=== PATIENT | male | born 1960 | race Caucasian/White ===

== ENCOUNTER 2017-07-22 09:21 | Inpatient (IN) | payer BC, OTHER ==
[~2017-07-22] VITALS: Ht 188 cm; Wt 90.7 kg
--- NOTE | 2017-07-22 09:45 | NUR ---
NEW IV STARTED ON RAC, 18 G.
--- NOTE | 2017-07-22 09:45 | NUR ---
PATIENT PRESENTS TO ER C/O ABD PAIN, NAUSEA AND VOMITING. ADMITS TO CHILLS AND HOT FLASHES. PATIENT IS A/OX 4. BREATHING EVEN AND UNLABORED. NO SOB. 1 EPISODE OF VOMITING AT ER. VITALS STABLE. SAFETY AND COMFORT MEASURES IN PLACE. AWAITING MD ORDERS.
[2017-07-22] MEDS ORDERED: DICYCLOMINE HCL INJ 20 MG/2 ML AMPUL IM ONE ×2 (09:49→10:00)
[2017-07-22] MEDS ORDERED: ONDANSETRON HCL/PF 4 MG/2 ML VIAL ONE ×2 (09:49→10:56)
--- NOTE | 2017-07-22 09:59 | NUR ---
PATIENT MEDICATED PER MD ORDERS.
[2017-07-22] MEDS ORDERED: ONDANSETRON HCL/PF 4 MG/2 ML VIAL IVP ONE ×2 (10:00→11:00)
[2017-07-22] MEDS ORDERED: IV NS 0.9% 1,000 ML BAG IV ONE ×2 (10:00→11:00)
[2017-07-22] MEDS ORDERED: LORAZEPAM INJ 2 MG/ML VIAL ONE ×2 (10:56→13:25)
[2017-07-22] MEDS ORDERED: LORAZEPAM INJ 2 MG/ML VIAL IV ONE (11:00)
[2017-07-22 11:08] LABS: BASOPHILS % (AUTO) 0.1 % (0.0-2.0); EOSINOPHILS % (AUTO) 0.3 % (0.0-6.0); HEMATOCRIT 45 % (39-51); HEMOGLOBIN 15.4 g/dL (13.5-17.5); LYMPHOCYTES # (AUTO) 1.3 /CMM (0.8-4.8); LYMPHOCYTES % (AUTO) 12.3 % (20.0-44.0); MEAN CORPUSCULAR HEMOGLOBIN 30 PG (26.0-33.0); MEAN CORPUSCULAR HGB CONC 34 g/dl (31.0-36.0); MEAN CORPUSCULAR VOLUME 88 fL (80-96); MONOCYTES # (AUTO) 0.3 /CMM (0.1-1.30); MONOCYTES % (AUTO) 3.3 % (2.0-12.0); NEUTROPHILS # (AUTO) 8.7 /CMM (1.8-8.9); PLATELET COUNT (AUTO) 227 /CMM (150-450); RED BLOOD CELL COUNT(AUTO) 5.14 MIL/uL (4.5-6.0); WHITE BLOOD COUNT (AUTO) 10.3 K/uL (4.3-11.0)
[2017-07-22 11:12] LABS: CALCIUM, SERUM 8.9 mg/dL (8.5-10.1); POTASSIUM 3.8 mmol/L (3.5-5.1)
--- NOTE | 2017-07-22 11:30 | NUR ---
PATIENT TAKEN TO CT VIA STRETCHER.
--- NOTE | 2017-07-22 11:45 | NUR ---
PATIENT RETURNED FROM CT.
--- NOTE | 2017-07-22 14:19 | NUR ---
REPORT GIVEN TO JENS HAGAN FOR ADMISSION
[2017-07-22] MEDS ORDERED: IV NS 0.9% 1,000 ML IV PRN ×2 (14:59→17:30)
[2017-07-22 15:00] VITALS: BP 152/72
[2017-07-22] MEDS ORDERED: MAG HYDROX/AL HYDROX/SIMETH 30 ML UDC PO PRN (15:00)
[2017-07-22] MEDS ORDERED: ONDANSETRON HCL/PF 4 MG/2 ML VIAL IVP PRN (15:00)
[2017-07-22] MEDS ORDERED: ZOLPIDEM TARTRATE 5 MG TABLET PO PRN (15:00)
[2017-07-22] MEDS ORDERED: Z GUARD REMEDY 2 OZ OINT TP PRN (15:00)
[2017-07-22] MEDS ORDERED: HYDROCODONE/APAP 5/325MG 1 EACH TABLET PO PRN (15:00)
[2017-07-22] MEDS ORDERED: MAGNESIUM HYDROXIDE 30 ML UDC PO PRN (15:00)
[2017-07-22] MEDS ORDERED: ACETAMINOPHEN 325 MG TABLET PO PRN (15:00)
--- NOTE | 2017-07-22 15:05 | NUR ---
PATIENT TRANSPORTED TO [facility] VIA STRETCHER WITH EMT. JENS HAGAN TO PROVIDE JACEK.
--- NOTE | 2017-07-22 15:10 | NUR ---
MS BAR MACHINE OPERATOR MULTIPLE SPINDLE NOTES ADMITTED PT FROM ER VIA STRETCHER.PT IS ALERT AND ORIENTED X4.VERBALLY RESPONSIVE.SKIN INTACT.DENIES NAUSEA AND VOMITING AT THIS TIME.PT JUST WENT BACK TO SLEEP.RESPIRATIONS NON LABORED IN ROOM AIR.IV H/L INTACT TO RT AC G 18.AMBULATES AD ROBBY WITH STEADY GAIT.CALL LIGHT PLACED WITHIN REACH.WILL MONITOR.
[2017-07-22 16:00] VITALS: BP 152/72
[2017-07-22] MEDS ORDERED: IV NS 0.9% 1,000 ML BAG IV PRN (17:30)
--- NOTE | 2017-07-22 18:59 | NUR ---
PT SLEEPING IN BED BUT AROUSABLE DENYING NAUSEA,VOMITING,DIARRHEA EPISODE NOR PAIN OR DISTRESS WHILE ON THE UNIT.WITH ONGOING IVF OF NS AT 75 ML/HR INFUSING WELL.
--- NOTE | 2017-07-22 19:30 | NUR ---
MS RN OPENING NOTES: PATIENT IN BED, AOX4, ON ROOM AIR, BREATHING EVEN AND UNLABORED. PATIENT JUST RECENTLY HAD ONE EPISODE OF VOMITING AND IS COMPLAINING OF BEING NAUSEOUS. PIV OVER RAC G 18 INTACT AND PATENT, INFUSING WELL WITH NS RUNNIGN AT 75 ML/HR. PROVIDED FOR COMFORT AND SAFETY. CALL LIGHT WITHIN REACH. WILL CONT TO MONITOR.
--- NOTE | 2017-07-22 19:45 | NUR ---
RN NOTES: ADMINISTERED ZOFRAN 4 MG IV PRN FOR VOMITING. GAVE ICE CHIPS WELL AND MAINTAINED HOB ELEVATED.
[2017-07-22 20:10] VITALS: BP 157/86
[2017-07-23] MEDS ORDERED: LORAZEPAM 1 MG TABLET ONE (02:22)
--- NOTE | 2017-07-23 02:28 | NUR ---
RN NOTES: PATIENT APPEARS ANXIOUS, AGITATED IN BED. IV WAS ACCIDENTALLY PULLED OUT WELL. REINSERTED NEW IV LINE OVER RFA, G22. INFORMED DR PEÑA RE PATIENT, ORDER FOR ATIVAN 2 MG PO PRN GIVEN. VS CHECKED, STABLE. ADMINISTERED ATIVAN PO. WILL CONT TO MONITOR.
[2017-07-23] MEDS ORDERED: LORAZEPAM 1 MG TABLET PO PRN (02:30)
[2017-07-23 02:31] VITALS: BP 120/79
[2017-07-23 06:31] LABS: BASOPHILS % (AUTO) 0.2 % (0.0-2.0); HEMATOCRIT 40 % (39-51); HEMOGLOBIN 13.1 g/dL (13.5-17.5); LYMPHOCYTES # (AUTO) 1.4 /CMM (0.8-4.8); LYMPHOCYTES % (AUTO) 13.1 % (20.0-44.0); MEAN CORPUSCULAR HEMOGLOBIN 30 PG (26.0-33.0); MEAN CORPUSCULAR HGB CONC 33 g/dl (31.0-36.0); MEAN CORPUSCULAR VOLUME 90 fL (80-96); MONOCYTES % (AUTO) 9.2 % (2.0-12.0); NEUTROPHILS # (AUTO) 8.3 /CMM (1.8-8.9); NEUTROPHILS % (AUTO) 77.5 % (43.0-81.0); PLATELET COUNT (AUTO) 177 /CMM (150-450); RDW COEFFICIENT OF VARIATION 14.2 (11.5-15.0); RED BLOOD CELL COUNT(AUTO) 4.44 MIL/uL (4.5-6.0); WHITE BLOOD COUNT (AUTO) 10.7 K/uL (4.3-11.0)
[2017-07-23 06:54] LABS: ALBUMIN 3.4 g/dL (3.4-5.0); BILIRUBIN,TOTAL 0.3 mg/dL (0.2-1.0); CREATININE 0.8 mg/dL (0.6-1.3); MAGNESIUM 1.8 mg/dL (1.8-2.4); PHOSPHORUS 3.5 mg/dL (2.5-4.9); POTASSIUM 3.6 mmol/L (3.5-5.1); TOTAL PROTEIN, SERUM 6.5 g/dL (6.4-8.2)
--- NOTE | 2017-07-23 06:55 | NUR ---
MS RN CLOSING NOTES: PATIENT IN BED, ASLEEP BUT EASILY AWAKENS, ON ROOM AIR, BREATHING EVEN AND UNLABORED. PIV OVER RFA G22 INTACT AND PATENT, INFUSING WELL WITH NS RUNNING AT 75 ML/HR. NO NAUSEA OR VOMITING NOTED AFTER MIDNIGHT, WAS ABLE TO TOLERATE SOFT FOOD GIVEN. NO ACUTE CHANGE IN CONDITION NOTED THROUGH SHIFT. PROVIDED FOR COMFORT AND SAFETY. WILL ENDORSE TO AM RN FOR JACEK.
--- NOTE | 2017-07-23 07:05 | NUR ---
MS RN OPENING NOTES RECEIVED PT FROM NIGHTSHIFT NURSE IN STABLE CONDITION. PT IS A/O X4. NO SOB OR SIGNS OF DISTRESS NOTED. BREATHING IS EVEN AND UNLABORED PT DENIES AND N/V OR ABDOMINAL PAIN AT THIS TIME. IV PRESENT ON RIGHT FOREARM 22G PATENT AND INTACT INFUSING NS @ 75 ML/HR. PT IS TOLERATING INFUSION WELL. NO REDNESS OR SIGNS OF INFILTRATION NOTED. BED IN LOW LOCKED POSITION, SIDE RAILS UP X2, CALL LIGHT WITHIN REACH. WILL CONTINUE TO MONITOR.
[2017-07-23] MEDS ORDERED: PANTOPRAZOLE 40 MG TABLET.DR PO SCH (07:30)
[2017-07-23 08:00] VITALS: BP_SYST 114; BP_SYST 146; BP_DIAS 64; BP_DIAS 77
--- NOTE | 2017-07-23 11:14 | NUR ---
MS WEIGHTS AND MEASURES SEALER NOTES PT. WAS DISCHARGED FROM UNIT IN STABLE CONDITION. ALL NEEDS WERE MET DURING SHIFT AND ORDERS CARRIED OUT ACCORDINGLY. ALL DISCHARGE INSTRUCTIONS WERE DISCUSSED IN DETAIL WITH PATIENT. PT VERBALIZED UNDERSTANDING. COPIES OF ALL DISCHARGE PAPERWORK WERE PLACED IN PT'S CHART. BELONGINGS FORM SIGNED BY PATIENT. PT. LEFT WITH ALL OF HIS BELONGINGS. LEFT FACILITY IN SAFELY IN A PRIVATE VEHICLE DRIVEN BY HIS .
== END 2017-07-23 11:05 | disposition home or self-care (01) | DRG 392 ==
LOC: ER 09:23 → MED 15:42
PROVIDERS: ADMIT Internal Medicine; ATTEND Internal Medicine
DX: A08.4 Viral intestinal infection, unspecified (principal); N28.1 Cyst of kidney, acquired; K76.89 Other specified diseases of liver; N20.0 Calculus of kidney
CPT/HCPCS: 36415; 71020-TC; 71250-TC; 80048-TC; 80053-TC; 80061-TC; 83735-TC; 84100-TC; 85025-TC; 87081-TC; 93307-TC; A4606; J0500; J2060; J2405; J7030; Z7610

== ENCOUNTER 2018-02-01 20:00 | Emergency (ER) | payer OTHER, BC ==
[~2018-02-01] VITALS: Ht 188 cm; Wt 93.0 kg
[2018-02-01 20:05] VITALS: BP 151/106
[2018-02-01] MEDS ORDERED: HYDROCODONE/APAP 5/325MG 1 EACH TABLET PO ONE (20:30)
[2018-02-01] MEDS ORDERED: HYDROCODONE/APAP 10/325MG 1 EA TABLET PO ONE (20:30)
[2018-02-01] MEDS ORDERED: HYDROCODONE/APAP 10/325MG 1 EA TABLET ONE (20:46)
== END 2018-02-01 23:33 | disposition home or self-care (01) ==
LOC: ER 20:06
DX: S93.491A Sprain of other ligament of right ankle, initial encounter (principal); F12.10 Cannabis abuse, uncomplicated; Z87.442 Personal history of urinary calculi; W01.0XXA Fall on same level from slipping, tripping and stumbling without subsequent striking against object, initial encounter; X50.1XXA Overexertion from prolonged static or awkward postures, initial encounter; Y93.89 Activity, other specified; Y92.89 Other specified places as the place of occurrence of the external cause; Y99.8 Other external cause status
CPT/HCPCS: 73502; 73564-TC; 73610-TC; A4606; Z7610

== ENCOUNTER 2018-03-04 09:28 | Outpatient (CLI) | payer OTHER, BC | END 2018-03-04 23:59 | disposition home or self-care (01) | LOC: MRI 09:28 | DX: S93.491D Sprain of other ligament of right ankle, subsequent encounter (principal); S83.412D Sprain of medial collateral ligament of left knee, subsequent encounter; S33.5XXD Sprain of ligaments of lumbar spine, subsequent encounter; S73.101D Unspecified sprain of right hip, subsequent encounter; X58.XXXD Exposure to other specified factors, subsequent encounter | CPT/HCPCS: 73721-TC ==

== ENCOUNTER 2018-03-11 10:53 | Outpatient (CLI) | payer BC ==
[2018-03-11 12:19] LABS: APPEARANCE,URINE SL CLOUDY (CLEAR); BILIRUBIN,URINE NEGATIVE (NEGATIVE); BLOOD, URINE NEGATIVE Ery/uL (NEGATIVE); COLOR,URINE YELLOW (YELLOW); KETONES,URINE NEGATIVE (NEGATIVE); LEUKOCYTE ESTERASE ,URINE NEGATIVE (NEGATIVE); NITRITE, URINE NEGATIVE (NEGATIVE); PROTEIN,URINE TRACE mg/dl (NEGATIVE); UGLUCOSE NEGATIVE (NEGATIVE); UROBILINOGEN,URINE 0.2 EU/dL (0.2)
[2018-03-11 12:28] LABS: BACTERIA,URINE None seen /HPF (None Seen); RBC,URINE NONE SEEN /HPF (0-2); WBC,URINE 0-2 /HPF (0-3)
[2018-03-11 12:29] LABS: CALCIUM OXALATE CRYSTALS,UR Moderate /HPF (None Seen); SQUAMOUS EPITHELIAL CELL,UR Few /HPF (None Seen)
[2018-03-12 13:08] LABS: VARICELLA ZOSTER IgG 1385 index (Immune >165)
[2018-03-14 09:50] LABS: CHOLESTEROL 188 mg/dL (<200); HDL CHOLESTEROL 46 mg/dL (40-60); LDL 128 mg/dL (0-99); TRIGLYCERIDES 112 mg/dL (30-150)
[2018-03-16 11:37] LABS: ALBUMIN 3.9 g/dL (3.4-5.0); BILIRUBIN,TOTAL 0.7 mg/dL (0.2-1.0); CREATININE 0.9 mg/dL (0.6-1.3); POTASSIUM 3.9 mmol/L (3.5-5.1); TOTAL PROTEIN, SERUM 7.4 g/dL (6.4-8.2)
[2018-03-16 11:42] LABS: BASOPHILS % (AUTO) 0.3 % (0.0-2.0); EOSINOPHILS % (AUTO) 0.9 % (0.0-6.0); HEMATOCRIT 41 % (39-51); LYMPHOCYTES # (AUTO) 1.7 /CMM (0.8-4.8); LYMPHOCYTES % (AUTO) 30.6 % (20.0-44.0); MEAN CORPUSCULAR HGB CONC 34 g/dl (31.0-36.0); MEAN CORPUSCULAR VOLUME 90 fL (80-96); MONOCYTES # (AUTO) 0.4 /CMM (0.1-1.30); MONOCYTES % (AUTO) 6.7 % (2.0-12.0); NEUTROPHILS # (AUTO) 3.5 /CMM (1.8-8.9); NEUTROPHILS % (AUTO) 61.5 % (43.0-81.0); PLATELET COUNT (AUTO) 203 /CMM (150-450); RDW COEFFICIENT OF VARIATION 13.4 (11.5-15.0); WHITE BLOOD COUNT (AUTO) 5.6 K/uL (4.3-11.0)
[2018-03-16 11:50] LABS: PROSTATE SPECIFIC ANTIGEN SCR 0.52 ng/mL (0.00-4.00); THYROID STIMULATING HORMONE 1.538 uIU/mL (0.358-3.74); URIC ACID 5.1 mg/dL (2.6-7.2)
== END 2018-03-11 23:59 | disposition home or self-care (01) ==
LOC: LAB 10:53
PROVIDERS: ATTEND Legal Medicine
DX: N40.0 Benign prostatic hyperplasia without lower urinary tract symptoms (principal); R79.89 Other specified abnormal findings of blood chemistry
CPT/HCPCS: 36415; 80053-TC; 80061-TC; 81000-TC; 82306; 84153-TC; 84402; 84403; 84439-TC; 84443-TC; 84550-TC; 85025-TC; 86787

== ENCOUNTER 2018-03-14 14:13 | Outpatient (CLI) | payer BC | END 2018-03-14 23:59 | disposition home or self-care (01) | LOC: CARD 14:13 | PROVIDERS: ATTEND Legal Medicine | DX: R01.1 Cardiac murmur, unspecified (principal) | CPT/HCPCS: 93880-TC ==

== ENCOUNTER 2018-04-07 11:17 | Outpatient (CLI) | payer BC ==
[2018-04-07 13:32] LABS: APPEARANCE,URINE SL CLOUDY (CLEAR); BILIRUBIN,URINE NEGATIVE (NEGATIVE); BLOOD, URINE TRACE-INTA Ery/uL (NEGATIVE); COLOR,URINE YELLOW (YELLOW); KETONES,URINE NEGATIVE (NEGATIVE); LEUKOCYTE ESTERASE ,URINE NEGATIVE (NEGATIVE); NITRITE, URINE NEGATIVE (NEGATIVE); PROTEIN,URINE NEGATIVE (NEGATIVE); UGLUCOSE NEGATIVE (NEGATIVE); UROBILINOGEN,URINE 0.2 EU/dL (0.2)
[2018-04-07 13:44] LABS: RBC,URINE 0-2 /HPF (0-2)
[2018-04-07 13:45] LABS: BACTERIA,URINE Rare /HPF (None Seen); SQUAMOUS EPITHELIAL CELL,UR Few /HPF (None Seen); URINE AMORPHOUS URATE Moderate /HPF (None Seen); WBC,URINE NONE SEEN /HPF (0-3)
[2018-04-07 13:49] LABS: ALBUMIN 3.9 g/dL (3.4-5.0); BILIRUBIN,TOTAL 0.3 mg/dL (0.2-1.0); CALCIUM, SERUM 8.8 mg/dL (8.5-10.1); CREATININE 1.1 mg/dL (0.6-1.3); POTASSIUM 4.1 mmol/L (3.5-5.1); TOTAL PROTEIN, SERUM 7.3 g/dL (6.4-8.2)
[2018-04-07 14:02] LABS: INR 0.92 (0.87-1.13)
[2018-04-07 14:33] LABS: BASOPHILS % (AUTO) 0.3 % (0.0-2.0); EOSINOPHILS % (AUTO) 1.4 % (0.0-6.0); HEMATOCRIT 41 % (39-51); HEMOGLOBIN 14.2 g/dL (13.5-17.5); LYMPHOCYTES # (AUTO) 1.6 /CMM (0.8-4.8); LYMPHOCYTES % (AUTO) 31.5 % (20.0-44.0); MEAN CORPUSCULAR HGB CONC 35 g/dl (31.0-36.0); MEAN CORPUSCULAR VOLUME 88 fL (80-96); MONOCYTES # (AUTO) 0.5 /CMM (0.1-1.30); NEUTROPHILS % (AUTO) 57.8 % (43.0-81.0); PLATELET COUNT (AUTO) 228 /CMM (150-450); RDW COEFFICIENT OF VARIATION 14.3 (11.5-15.0); RED BLOOD CELL COUNT(AUTO) 4.66 MIL/uL (4.5-6.0); WHITE BLOOD COUNT (AUTO) 5.2 K/uL (4.3-11.0)
== END 2018-04-07 23:59 | disposition home or self-care (01) ==
LOC: LAB 11:17
PROVIDERS: ATTEND Surgery
DX: I70.0 Atherosclerosis of aorta (principal); R10.13 Epigastric pain; R19.4 Change in bowel habit
CPT/HCPCS: 36415; 71046; 80053-TC; 81000-TC; 85025-TC; 85610-TC; 85730-TC

== ENCOUNTER 2018-07-01 06:59 | Outpatient (CLI) | payer BC ==
[2018-07-01 07:59] LABS: CHOLESTEROL 218 mg/dL (<200); HDL CHOLESTEROL 55 mg/dL (40-60); LDL 129 mg/dL (0-99); TRIGLYCERIDES 180 mg/dL (30-150)
== END 2018-07-01 23:59 | disposition home or self-care (01) ==
LOC: LAB 06:59
PROVIDERS: ATTEND Internal Medicine Interventional Cardiology
DX: E78.5 Hyperlipidemia, unspecified (principal)
CPT/HCPCS: 36415; 80061-TC

== ENCOUNTER 2019-06-16 09:32 | Outpatient (CLI) | payer BC ==
[2019-06-16 10:21] LABS: BASOPHILS % (AUTO) 0.3 % (0.0-2.0); EOSINOPHILS % (AUTO) 1.1 % (0.0-6.0); HEMATOCRIT 45 % (39-51); HEMOGLOBIN 15.3 g/dL (13.5-17.5); LYMPHOCYTES # (AUTO) 1.5 /CMM (0.8-4.8); LYMPHOCYTES % (AUTO) 31.4 % (20.0-44.0); MEAN CORPUSCULAR HGB CONC 34 g/dl (31.0-36.0); MEAN CORPUSCULAR VOLUME 91 fL (80-96); MONOCYTES # (AUTO) 0.4 /CMM (0.1-1.30); NEUTROPHILS # (AUTO) 2.9 /CMM (1.8-8.9); NEUTROPHILS % (AUTO) 59.2 % (43.0-81.0); PLATELET COUNT (AUTO) 202 /CMM (150-450); RED BLOOD CELL COUNT(AUTO) 4.95 MIL/uL (4.5-6.0); WHITE BLOOD COUNT (AUTO) 4.9 K/uL (4.3-11.0)
[2019-06-16 10:22] LABS: APPEARANCE,URINE CLEAR (CLEAR); BILIRUBIN,URINE NEGATIVE (NEGATIVE); BLOOD, URINE NEGATIVE Ery/uL (NEGATIVE); COLOR,URINE DARK YELLO (YELLOW); KETONES,URINE NEGATIVE (NEGATIVE); LEUKOCYTE ESTERASE ,URINE NEGATIVE (NEGATIVE); NITRITE, URINE NEGATIVE (NEGATIVE); PROTEIN,URINE NEGATIVE (NEGATIVE); UGLUCOSE NEGATIVE (NEGATIVE); UROBILINOGEN,URINE 0.2 EU/dL (0.2)
[2019-06-16 10:35] LABS: ALBUMIN 4.3 g/dL (3.4-5.0); BILIRUBIN,TOTAL 0.8 mg/dL (0.2-1.0); CALCIUM, SERUM 8.7 mg/dL (8.5-10.1); POTASSIUM 3.7 mmol/L (3.5-5.1); TOTAL PROTEIN, SERUM 7.9 g/dL (6.4-8.2)
[2019-06-16 10:45] LABS: PROSTATE SPECIFIC ANTIGEN SCR 0.78 ng/mL (0.00-4.00); THYROID STIMULATING HORMONE 1.459 uIU/mL (0.358-3.74); URIC ACID 5.1 mg/dL (2.6-7.2)
== END 2019-06-16 23:59 | disposition home or self-care (01) ==
LOC: LAB 09:32
PROVIDERS: ATTEND Legal Medicine
DX: Z00.00 Encounter for general adult medical examination without abnormal findings (principal)
CPT/HCPCS: 36415; 80053-TC; 80061-TC; 81000-TC; 82306; 84153-TC; 84402; 84403; 84439-TC; 84443-TC; 84550-TC; 85025-TC; 87086-TC

== ENCOUNTER 2019-12-26 06:46 | Outpatient (CLI) | payer BC ==
[2019-12-26 08:58] LABS: BASOPHILS % (AUTO) 0.4 % (0.0-2.0); EOSINOPHILS % (AUTO) 3.9 % (0.0-6.0); HEMATOCRIT 44 % (39-51); HEMOGLOBIN 14.8 g/dL (13.5-17.5); LYMPHOCYTES # (AUTO) 1.8 /CMM (0.8-4.8); LYMPHOCYTES % (AUTO) 38.7 % (20.0-44.0); MEAN CORPUSCULAR HGB CONC 34 g/dl (31.0-36.0); MEAN CORPUSCULAR VOLUME 90 fL (80-96); MONOCYTES # (AUTO) 0.4 /CMM (0.1-1.30); NEUTROPHILS # (AUTO) 2.3 /CMM (1.8-8.9); PLATELET COUNT (AUTO) 198 /CMM (150-450); RED BLOOD CELL COUNT(AUTO) 4.84 MIL/uL (4.5-6.0); WHITE BLOOD COUNT (AUTO) 4.6 K/uL (4.3-11.0)
[2019-12-26 09:11] LABS: ALBUMIN 3.7 g/dL (3.4-5.0); BILIRUBIN,TOTAL 0.3 mg/dL (0.2-1.0); CALCIUM, SERUM 8.5 mg/dL (8.5-10.1); CREATININE 1.1 mg/dL (0.6-1.3); POTASSIUM 4.9 mmol/L (3.5-5.1); TOTAL PROTEIN, SERUM 7.2 g/dL (6.4-8.2)
[2019-12-26 09:21] LABS: THYROID STIMULATING HORMONE 2.151 uIU/mL (0.358-3.74)
== END 2019-12-26 23:59 | disposition home or self-care (01) ==
LOC: LAB 06:46
PROVIDERS: ATTEND Legal Medicine
DX: I10 Essential (primary) hypertension (principal); E11.9 Type 2 diabetes mellitus without complications; E78.5 Hyperlipidemia, unspecified; E03.9 Hypothyroidism, unspecified
CPT/HCPCS: 36415; 80053-TC; 80061-TC; 84443-TC; 85025-TC

== ENCOUNTER 2020-07-10 08:21 | Emergency (ER) | payer BC, OTHER ==
[~2020-07-10] VITALS: Ht 188 cm; Wt 95.3 kg
[2020-07-10 08:30] VITALS: BP 142/102
--- NOTE | 2020-07-10 09:00 | NUR ---
COVID SWAB SENT TO LAB. Patient discharged to home in stable condition. Written and verbal after care instructions given. Patient verbalizes understanding of instruction.
== END 2020-07-10 09:00 | disposition home or self-care (01) ==
LOC: ER 08:21
DX: Z20.828 Contact with and (suspected) exposure to other viral communicable diseases (principal); Z87.442 Personal history of urinary calculi; R03.0 Elevated blood-pressure reading, without diagnosis of hypertension
CPT/HCPCS: 99283; C9803; U0003

== ENCOUNTER 2020-07-17 08:25 | Emergency (ER) | payer OTHER ==
[~2020-07-17] VITALS: Ht 185.4 cm; Wt 93.0 kg
[2020-07-17 08:32] VITALS: BP 156/92
--- NOTE | 2020-07-17 09:27 | NUR ---
COVID SWAB SENT
== END 2020-07-17 09:28 | disposition home or self-care (01) ==
LOC: ER 08:25
DX: Z20.828 Contact with and (suspected) exposure to other viral communicable diseases (principal); Z87.442 Personal history of urinary calculi
CPT/HCPCS: 99283; C9803; U0003

== ENCOUNTER 2020-07-26 08:28 | Emergency (ER) | payer OTHER ==
[~2020-07-26] VITALS: Ht 185.4 cm; Wt 90.7 kg
[2020-07-26 08:30] VITALS: BP 159/92
== END 2020-07-26 09:20 | disposition home or self-care (01) ==
LOC: ER 08:30
DX: Z20.828 Contact with and (suspected) exposure to other viral communicable diseases (principal); I10 Essential (primary) hypertension; Z87.442 Personal history of urinary calculi
CPT/HCPCS: 99283; C9803; U0003

== ENCOUNTER 2020-07-31 08:04 | Outpatient (CLI) | payer BC ==
[2020-07-31 08:52] LABS: BASOPHILS % (AUTO) 0.3 % (0.0-2.0); EOSINOPHILS % (AUTO) 0.9 % (0.0-6.0); HEMATOCRIT 46 % (39-51); HEMOGLOBIN 15.5 g/dL (13.5-17.5); LYMPHOCYTES # (AUTO) 1.3 /CMM (0.8-4.8); LYMPHOCYTES % (AUTO) 26.1 % (20.0-44.0); MEAN CORPUSCULAR HGB CONC 34 g/dl (31.0-36.0); MEAN CORPUSCULAR VOLUME 93 fL (80-96); MONOCYTES # (AUTO) 0.5 /CMM (0.1-1.30); MONOCYTES % (AUTO) 10.5 % (2.0-12.0); NEUTROPHILS # (AUTO) 3.2 /CMM (1.8-8.9); NEUTROPHILS % (AUTO) 62.2 % (43.0-81.0); PLATELET COUNT (AUTO) 214 /CMM (150-450); WHITE BLOOD COUNT (AUTO) 5.1 K/uL (4.3-11.0)
[2020-07-31 08:55] LABS: ALBUMIN 4.1 g/dL (3.4-5.0); BILIRUBIN,TOTAL 0.5 mg/dL (0.2-1.0); CALCIUM, SERUM 8.6 mg/dL (8.5-10.1); POTASSIUM 3.9 mmol/L (3.5-5.1); TOTAL PROTEIN, SERUM 7.7 g/dL (6.4-8.2)
[2020-07-31 09:06] LABS: PROSTATE SPECIFIC ANTIGEN SCR 0.68 ng/mL (0.00-4.00); THYROID STIMULATING HORMONE 1.534 uIU/mL (0.358-3.74); URIC ACID 5.5 mg/dL (2.6-7.2)
[2020-07-31 11:50] LABS: APPEARANCE,URINE CLEAR (CLEAR); BILIRUBIN,URINE NEGATIVE (NEGATIVE); BLOOD, URINE TRACE-INTA Ery/uL (NEGATIVE); COLOR,URINE DARK YELLO (YELLOW); KETONES,URINE TRACE (NEGATIVE); LEUKOCYTE ESTERASE ,URINE NEGATIVE (NEGATIVE); NITRITE, URINE NEGATIVE (NEGATIVE); PH,URINE 6.5 (5.0-8.0); PROTEIN,URINE TRACE mg/dl (NEGATIVE); UGLUCOSE NEGATIVE (NEGATIVE); UROBILINOGEN,URINE 0.2 EU/dL (0.2)
[2020-07-31 13:48] LABS: BACTERIA,URINE Rare /HPF (None Seen); SQUAMOUS EPITHELIAL CELL,UR Rare /HPF (None Seen); WBC,URINE 0-2 /HPF (0-3)
[2020-08-01 08:07] LABS: FOLIC ACID 17.4 ng/mL (>3.0)
== END 2020-07-31 23:59 | disposition home or self-care (01) ==
LOC: LAB 08:04
PROVIDERS: ATTEND Legal Medicine
DX: I10 Essential (primary) hypertension (principal); E11.9 Type 2 diabetes mellitus without complications; E03.9 Hypothyroidism, unspecified; E55.9 Vitamin D deficiency, unspecified; E78.00 Pure hypercholesterolemia, unspecified; Z00.00 Encounter for general adult medical examination without abnormal findings
CPT/HCPCS: 36415; 80053-TC; 80061-TC; 81000-TC; 82306; 82728-TC; 83540-TC; 84153-TC; 84402; 84403; 84439-TC; 84443-TC; 84550-TC; 85025-TC

== ENCOUNTER 2020-08-01 07:03 | Emergency (ER) | payer BC, OTHER ==
[~2020-08-01] VITALS: Ht 185.4 cm; Wt 90.7 kg
[2020-08-01 07:08] VITALS: BP 141/86
--- NOTE | 2020-08-02 09:33 | NUR ---
COVID RESULT: NEGATIVE
== END 2020-08-01 07:39 | disposition home or self-care (01) ==
LOC: ER 07:03
DX: Z20.828 Contact with and (suspected) exposure to other viral communicable diseases (principal); I10 Essential (primary) hypertension; Z87.442 Personal history of urinary calculi
CPT/HCPCS: 99283; C9803; U0003

== ENCOUNTER 2020-08-01 09:25 | Outpatient (CLI) | payer BC | END 2020-08-01 23:59 | disposition home or self-care (01) | LOC: MRI 09:25 | PROVIDERS: ATTEND Legal Medicine | DX: I34.0 Nonrheumatic mitral (valve) insufficiency (principal); I35.8 Other nonrheumatic aortic valve disorders; I10 Essential (primary) hypertension; M47.817 Spondylosis without myelopathy or radiculopathy, lumbosacral region; M48.07 Spinal stenosis, lumbosacral region; M51.27 Other intervertebral disc displacement, lumbosacral region; M25.78 Osteophyte, vertebrae; I67.82 Cerebral ischemia; H74.8X3 Other specified disorders of middle ear and mastoid, bilateral | CPT/HCPCS: 70551-TC; 72148-TC; 93307-TC; 93880-TC ==

== ENCOUNTER 2020-08-09 12:34 | Emergency (ER) | payer BC, OTHER ==
[~2020-08-09] VITALS: Ht 185.4 cm; Wt 90.7 kg
[2020-08-09 12:39] VITALS: BP 148/83
--- NOTE | 2020-08-09 12:56 | NUR ---
covid 19 swab collected and sent to lab
--- NOTE | 2020-08-09 12:57 | NUR ---
Patient discharged to home in stable condition. Written and verbal after care instructions given. Patient verbalizes understanding of instruction.
== END 2020-08-09 12:57 | disposition home or self-care (01) ==
LOC: ER 12:36
DX: Z20.828 Contact with and (suspected) exposure to other viral communicable diseases (principal)
CPT/HCPCS: 99283; C9803; U0003

== ENCOUNTER 2020-08-15 10:47 | Emergency (ER) | payer OTHER ==
[~2020-08-15] VITALS: Ht 185.4 cm; Wt 72.6 kg
[2020-08-15 11:12] VITALS: BP 134/77
== END 2020-08-15 11:33 | disposition home or self-care (01) ==
LOC: ER 10:50
DX: Z20.828 Contact with and (suspected) exposure to other viral communicable diseases (principal); Z87.442 Personal history of urinary calculi; I10 Essential (primary) hypertension
CPT/HCPCS: C9803-CS; U0003-CS

== ENCOUNTER 2020-08-22 09:29 | Emergency (ER) | payer OTHER ==
[~2020-08-22] VITALS: Ht 185.4 cm; Wt 90.7 kg
[2020-08-22 10:01] VITALS: BP 149/98
== END 2020-08-22 10:59 | disposition home or self-care (01) ==
LOC: ER 09:30
DX: Z20.828 Contact with and (suspected) exposure to other viral communicable diseases (principal); I10 Essential (primary) hypertension; Z87.442 Personal history of urinary calculi; Z87.19 Personal history of other diseases of the digestive system
CPT/HCPCS: 99283; C9803; U0003

== ENCOUNTER 2020-08-29 07:06 | Emergency (ER) | payer OTHER ==
[~2020-08-29] VITALS: Ht 177.8 cm; Wt 81.6 kg
[2020-08-29 07:28] VITALS: BP 137/83
== END 2020-08-29 08:12 | disposition home or self-care (01) ==
LOC: ER 07:06
DX: Z20.828 Contact with and (suspected) exposure to other viral communicable diseases (principal); I10 Essential (primary) hypertension; Z87.442 Personal history of urinary calculi
CPT/HCPCS: 99283; C9803; U0003

== ENCOUNTER 2020-09-06 07:17 | Emergency (ER) | payer OTHER ==
[~2020-09-06] VITALS: Ht 185.4 cm; Wt 88.9 kg
[2020-09-06 07:23] VITALS: BP 132/84
--- NOTE | 2020-09-06 07:47 | NUR ---
covid swab sent. Patient discharged to home in stable condition. Written and verbal after care instructions given. Patient verbalizes understanding of instruction.
== END 2020-09-06 07:48 | disposition home or self-care (01) ==
LOC: ER 07:19
DX: Z20.828 Contact with and (suspected) exposure to other viral communicable diseases (principal); I10 Essential (primary) hypertension; Z87.442 Personal history of urinary calculi
CPT/HCPCS: 99283; C9803; U0003

== ENCOUNTER 2020-09-12 07:17 | Emergency (ER) | payer OTHER ==
[~2020-09-12] VITALS: Ht 185.4 cm; Wt 88.9 kg
[2020-09-12 07:20] VITALS: BP 132/64
== END 2020-09-12 08:49 | disposition home or self-care (01) ==
LOC: ER 07:17
DX: Z20.828 Contact with and (suspected) exposure to other viral communicable diseases (principal); I10 Essential (primary) hypertension; Z87.442 Personal history of urinary calculi
CPT/HCPCS: 99283; C9803; U0003

== ENCOUNTER 2020-09-19 09:51 | Emergency (ER) | payer OTHER ==
[~2020-09-19] VITALS: Ht 188 cm; Wt 81.6 kg
[2020-09-19 09:54] VITALS: BP 134/81
--- NOTE | 2020-09-19 10:31 | NUR ---
covid swab sent. Patient discharged to home in stable condition. Written and verbal after care instructions given. Patient verbalizes understanding of instruction.
== END 2020-09-19 10:33 | disposition home or self-care (01) ==
LOC: ER 09:53
DX: Z20.828 Contact with and (suspected) exposure to other viral communicable diseases (principal); I10 Essential (primary) hypertension; Z87.442 Personal history of urinary calculi; Z87.19 Personal history of other diseases of the digestive system
CPT/HCPCS: 99283; C9803; U0003

== ENCOUNTER 2020-09-25 20:08 | Emergency (ER) | payer OTHER ==
[~2020-09-25] VITALS: Ht 188 cm; Wt 81.6 kg
[2020-09-25 20:12] VITALS: BP 132/64
== END 2020-09-25 20:34 | disposition home or self-care (01) ==
LOC: ER 20:11
DX: Z20.828 Contact with and (suspected) exposure to other viral communicable diseases (principal); I10 Essential (primary) hypertension; Z87.442 Personal history of urinary calculi
CPT/HCPCS: 99283; C9803; U0003

== ENCOUNTER 2020-10-03 08:57 | Emergency (ER) | payer OTHER ==
[~2020-10-03] VITALS: Ht 185.4 cm; Wt 90.7 kg
[2020-10-03 09:17] VITALS: BP 132/85
== END 2020-10-03 10:29 | disposition home or self-care (01) ==
LOC: ER 08:59
DX: Z20.828 Contact with and (suspected) exposure to other viral communicable diseases (principal); I10 Essential (primary) hypertension; Z87.442 Personal history of urinary calculi
CPT/HCPCS: 99283; C9803; U0003

== ENCOUNTER 2020-10-09 13:14 | Emergency (ER) | payer OTHER ==
[~2020-10-09] VITALS: Ht 185.4 cm; Wt 90.7 kg
[2020-10-09 13:20] VITALS: BP 145/79
--- NOTE | 2020-10-09 13:38 | NUR ---
Patient discharged to home in stable condition. Written and verbal after care instructions given. Patient verbalizes understanding of instruction. Pt ambulatory with a steady gait
== END 2020-10-09 13:39 | disposition home or self-care (01) ==
LOC: ER 13:14
DX: S51.811A Laceration without foreign body of right forearm, initial encounter (principal); I10 Essential (primary) hypertension; Z87.442 Personal history of urinary calculi; W25.XXXA Contact with sharp glass, initial encounter; Y93.89 Activity, other specified; Y92.89 Other specified places as the place of occurrence of the external cause; Y99.8 Other external cause status

== ENCOUNTER 2020-10-10 08:16 | Emergency (ER) | payer OTHER ==
[~2020-10-10] VITALS: Ht 185.4 cm; Wt 90.7 kg
[2020-10-10 08:20] VITALS: BP 142/78
== END 2020-10-10 09:25 | disposition home or self-care (01) ==
LOC: ER 08:18
DX: Z20.828 Contact with and (suspected) exposure to other viral communicable diseases (principal)
CPT/HCPCS: 99283; C9803; U0003

== ENCOUNTER 2020-10-16 09:40 | Emergency (ER) | payer OTHER ==
[~2020-10-16] VITALS: Ht 185.4 cm; Wt 90.7 kg
[2020-10-16 09:40] VITALS: BP 134/90
== END 2020-10-16 10:46 | disposition home or self-care (01) ==
LOC: ER 09:46
DX: S51.811D Laceration without foreign body of right forearm, subsequent encounter (principal); I10 Essential (primary) hypertension; Z87.442 Personal history of urinary calculi; W25.XXXD Contact with sharp glass, subsequent encounter

== ENCOUNTER 2020-10-24 08:49 | Emergency (ER) | payer OTHER ==
[~2020-10-24] VITALS: Ht 188 cm; Wt 88.5 kg
[2020-10-24 08:51] VITALS: BP 138/83
--- NOTE | 2020-10-24 09:16 | NUR ---
Patient discharged to home in stable condition. Written and verbal after care instructions given. Patient verbalizes understanding of instruction.
== END 2020-10-24 09:17 | disposition home or self-care (01) ==
LOC: ER 08:49
DX: Z20.828 Contact with and (suspected) exposure to other viral communicable diseases (principal); I10 Essential (primary) hypertension; Z87.19 Personal history of other diseases of the digestive system; Z87.442 Personal history of urinary calculi
CPT/HCPCS: 99283; C9803; U0003

== ENCOUNTER 2020-10-31 09:20 | Emergency (ER) | payer OTHER ==
[~2020-10-31] VITALS: Ht 185.4 cm; Wt 2.7 kg
[2020-10-31 09:22] VITALS: BP 151/94
== END 2020-10-31 10:07 | disposition home or self-care (01) ==
LOC: ER 09:22
DX: U07.1 COVID-19 (principal)
CPT/HCPCS: 99283; C9803; U0003

== ENCOUNTER 2020-11-05 07:27 | Emergency (ER) | payer OTHER ==
[~2020-11-05] VITALS: Ht 185.4 cm; Wt 90.7 kg
[2020-11-05 07:34] VITALS: BP 148/96
--- NOTE | 2020-11-05 22:40 | NUR ---
LAB CALLED REGARDING POSITIVE COVID RESULT
== END 2020-11-05 08:18 | disposition home or self-care (01) ==
LOC: ER 07:29
DX: U07.1 COVID-19 (principal); R19.7 Diarrhea, unspecified; I10 Essential (primary) hypertension; Z87.442 Personal history of urinary calculi
CPT/HCPCS: 99283; C9803; U0003

== ENCOUNTER 2020-11-21 09:44 | Emergency (ER) | payer BC, OTHER ==
[~2020-11-21] VITALS: Ht 188 cm; Wt 79.4 kg
[2020-11-21 10:00] VITALS: BP 155/98
[2020-11-21] MEDS ORDERED: AMOXICILLIN TRIHYDRATE 250 MG CAPSULE ONE (10:27)
[2020-11-21] MEDS ORDERED: IBUPROFEN 600 MG TABLET ONE (10:28)
[2020-11-21] MEDS ORDERED: IBUPROFEN 600 MG TABLET PO ONE (10:30)
[2020-11-21] MEDS ORDERED: AMOXICILLIN TRIHYDRATE 500 MG CAPSULE PO ONE (10:30)
== END 2020-11-21 10:30 | disposition home or self-care (01) ==
LOC: ER 09:51
DX: K08.89 Other specified disorders of teeth and supporting structures (principal); H60.8X3 Other otitis externa, bilateral; I10 Essential (primary) hypertension; Z87.442 Personal history of urinary calculi

== ENCOUNTER 2021-01-15 13:36 | Outpatient (CLI) | payer BC | END 2021-01-15 23:59 | disposition home or self-care (01) | LOC: RAD 13:36 | PROVIDERS: ATTEND Legal Medicine | DX: M25.461 Effusion, right knee (principal); M71.21 Synovial cyst of popliteal space [Baker], right knee | CPT/HCPCS: 73564-TC ==

== ENCOUNTER 2021-01-17 12:34 | Outpatient (CLI) | payer BC | END 2021-01-17 23:59 | disposition home or self-care (01) | LOC: CARD 12:34 | PROVIDERS: ATTEND Legal Medicine | DX: M71.21 Synovial cyst of popliteal space [Baker], right knee (principal) | CPT/HCPCS: 93971-TC ==

== ENCOUNTER 2021-01-20 09:46 | Emergency (ER) | payer BC ==
[~2021-01-20] VITALS: Ht 185.4 cm; Wt 90.7 kg
--- NOTE | 2021-01-20 09:58 | NUR ---
patient came in tot he er c/o left knee pain, twisted yesterday while walking, 8/10 pain scale. On room air, breathing evenly and unlabored. Connected to the monitor and pulse ox. kept comfortable, will continue to monitor accordingly.
--- NOTE | 2021-01-20 10:00 | NUR ---
AT BEDSIDE FOR EVAL.
--- NOTE | 2021-01-20 10:18 | NUR ---
TAXATION INSPECTOR AT BEDSIDE FOR XRAY.
[2021-01-20] MEDS ORDERED: IBUP-1957 PO (10:32)
--- NOTE | 2021-01-20 10:48 | NUR ---
Patient discharged to home in stable condition. Written and verbal after care instructions given. Patient verbalizes understanding of instruction.
[2021-01-20 10:49] VITALS: BP 127/73
== END 2021-01-20 10:49 | disposition home or self-care (01) ==
LOC: ER 09:57
DX: M25.562 Pain in left knee (principal); I10 Essential (primary) hypertension; Z87.442 Personal history of urinary calculi; Z79.899 Other long term (current) drug therapy
CPT/HCPCS: 73564-TC

== ENCOUNTER 2021-02-12 08:47 | Outpatient (CLI) | payer BC ==
[~2021-02-12 08:47] MED LIST: IBUP-1957 PO
== END 2021-02-12 23:59 | disposition home or self-care (01) ==
LOC: MRI 08:47
PROVIDERS: ATTEND Specialist
DX: S83.241A Other tear of medial meniscus, current injury, right knee, initial encounter (principal); M25.462 Effusion, left knee; M25.461 Effusion, right knee; M71.22 Synovial cyst of popliteal space [Baker], left knee; M71.21 Synovial cyst of popliteal space [Baker], right knee; M65.88 Other synovitis and tenosynovitis, other site; X58.XXXA Exposure to other specified factors, initial encounter; Y93.89 Activity, other specified; Y92.89 Other specified places as the place of occurrence of the external cause; Y99.8 Other external cause status
CPT/HCPCS: 73721-TC

== ENCOUNTER 2021-04-04 13:59 | Outpatient (CLI) | payer BC | END 2021-04-04 23:59 | disposition home or self-care (01) | LOC: LAB 13:59 | PROVIDERS: ATTEND Specialist | DX: Z01.812 Encounter for preprocedural laboratory examination (principal); Z20.822 Contact with and (suspected) exposure to COVID-19 | CPT/HCPCS: C9803; U0003 ==

== ENCOUNTER 2021-04-07 10:05 | Outpatient (CLI) | payer BC ==
[2021-04-07 11:10] LABS: BASOPHILS % (AUTO) 0.4 % (0.0-2.0); EOSINOPHILS % (AUTO) 1.6 % (0.0-6.0); HEMATOCRIT 41 % (39-51); HEMOGLOBIN 14.1 g/dL (13.5-17.5); LYMPHOCYTES % (AUTO) 39.5 % (20.0-44.0); MEAN CORPUSCULAR HGB CONC 35 g/dl (31.0-36.0); MEAN CORPUSCULAR VOLUME 92 fL (80-96); MONOCYTES # (AUTO) 0.5 /CMM (0.1-1.30); MONOCYTES % (AUTO) 9.4 % (2.0-12.0); NEUTROPHILS # (AUTO) 2.5 /CMM (1.8-8.9); NEUTROPHILS % (AUTO) 49.1 % (43.0-81.0); PLATELET COUNT (AUTO) 222 /CMM (150-450); RED BLOOD CELL COUNT(AUTO) 4.47 MIL/uL (4.5-6.0); WHITE BLOOD COUNT (AUTO) 5.1 K/uL (4.3-11.0)
[2021-04-07 11:23] LABS: BILIRUBIN,URINE NEGATIVE (NEGATIVE); COLOR,URINE YELLOW (YELLOW); LEUKOCYTE ESTERASE ,URINE NEGATIVE (NEGATIVE); NITRITE, URINE NEGATIVE (NEGATIVE); PH,URINE 6.5 (5.0-8.0); PROTEIN,URINE NEGATIVE (NEGATIVE); UGLUCOSE NEGATIVE (NEGATIVE); UROBILINOGEN,URINE 0.2 EU/dL (0.2)
[2021-04-07 11:49] LABS: BACTERIA,URINE None seen /HPF (None Seen); CALCIUM OXALATE CRYSTALS,UR Few /HPF (None Seen); RBC,URINE 0-2 /HPF (0-2); SQUAMOUS EPITHELIAL CELL,UR Rare /HPF (None Seen); WBC,URINE 0-2 /HPF (0-3)
[2021-04-07 11:50] LABS: MUCUS,URINE Few /LPF (None Seen)
[2021-04-07 12:01] LABS: ALBUMIN 3.7 g/dL (3.4-5.0); BILIRUBIN,TOTAL 0.4 mg/dL (0.2-1.0); CALCIUM, SERUM 8.8 mg/dL (8.5-10.1); CREATININE 0.7 mg/dL (0.6-1.3); POTASSIUM 3.8 mmol/L (3.5-5.1); TOTAL PROTEIN, SERUM 7.1 g/dL (6.4-8.2)
== END 2021-04-07 23:59 | disposition home or self-care (01) ==
LOC: RAD 10:05
PROVIDERS: ATTEND Legal Medicine
DX: Z01.818 Encounter for other preprocedural examination (principal)
CPT/HCPCS: 36415; 71046; 80053-TC; 81001; 85025-TC; 85610-TC; 85730-TC

== ENCOUNTER 2021-04-09 05:46 | Day surgery (SDC) | payer BC ==
[2021-04-09] MEDS ORDERED: LIDOCAINE HCL/PF 1% 30 ML SDV ONE (06:22)
[2021-04-09] MEDS ORDERED: methylPREDNISolone ACETATE 80 MG/ML VIAL ONE (06:23)
[2021-04-09] MEDS ORDERED: FENTANYL PF 100MCG/2ML AMPUL ONE (06:49)
== END 2021-04-09 09:05 | disposition home or self-care (01) ==
LOC: DS 05:46
PROVIDERS: ATTEND Specialist
DX: S83.231A Complex tear of medial meniscus, current injury, right knee, initial encounter (principal); X58.XXXA Exposure to other specified factors, initial encounter; Y93.89 Activity, other specified; Y92.89 Other specified places as the place of occurrence of the external cause; Y99.8 Other external cause status; M94.261 Chondromalacia, right knee; I10 Essential (primary) hypertension; N40.0 Benign prostatic hyperplasia without lower urinary tract symptoms; M19.90 Unspecified osteoarthritis, unspecified site; Z79.899 Other long term (current) drug therapy
CPT/HCPCS: 29881; A4217; A6253; J1040; J2704; J3010; J3490 ×2

== ENCOUNTER 2021-08-13 07:49 | Outpatient (CLI) | payer BC ==
[2021-08-13 08:59] LABS: BASOPHILS % (AUTO) 0.4 % (0.0-2.0); EOSINOPHILS % (AUTO) 1.5 % (0.0-6.0); HEMATOCRIT 43 % (39-51); HEMOGLOBIN 14.5 g/dL (13.5-17.5); LYMPHOCYTES # (AUTO) 1.6 K/uL (0.8-4.8); LYMPHOCYTES % (AUTO) 35.7 % (20.0-44.0); MEAN CORPUSCULAR HGB CONC 34 g/dl (31.0-36.0); MEAN CORPUSCULAR VOLUME 93 fL (80-96); MONOCYTES # (AUTO) 0.4 K/uL (0.1-1.30); NEUTROPHILS # (AUTO) 2.4 K/uL (1.8-8.9); NEUTROPHILS % (AUTO) 53.4 % (43.0-81.0); PLATELET COUNT (AUTO) 200 K/uL (150-450); WHITE BLOOD COUNT (AUTO) 4.5 K/uL (4.3-11.0)
[2021-08-13 09:01] LABS: BILIRUBIN,URINE NEGATIVE (NEGATIVE); COLOR,URINE YELLOW (YELLOW); LEUKOCYTE ESTERASE ,URINE NEGATIVE (NEGATIVE); NITRITE, URINE NEGATIVE (NEGATIVE); PROTEIN,URINE NEGATIVE (NEGATIVE); UGLUCOSE NEGATIVE (NEGATIVE); UROBILINOGEN,URINE 0.2 EU/dL (0.2)
[2021-08-13 09:35] LABS: PROSTATE SPECIFIC ANTIGEN SCR 0.7 ng/mL (0.00-4.00); RBC,URINE 0-2 /HPF (0-2); THYROID STIMULATING HORMONE 1.469 uIU/mL (0.358-3.74); URIC ACID 5.8 mg/dL (2.6-7.2); WBC,URINE 0-2 /HPF (0-3)
[2021-08-13 09:36] LABS: BACTERIA,URINE Few /HPF (None Seen); SQUAMOUS EPITHELIAL CELL,UR Rare /HPF (None Seen); URINE AMORPHOUS URATE Many /HPF (None Seen)
[2021-08-13 09:41] LABS: BILIRUBIN,TOTAL 0.7 mg/dL (0.2-1.0); CALCIUM, SERUM 8.7 mg/dL (8.5-10.1); CREATININE 0.8 mg/dL (0.6-1.3); TOTAL PROTEIN, SERUM 7.5 g/dL (6.4-8.2)
== END 2021-08-13 23:59 | disposition home or self-care (01) ==
LOC: LAB 07:49
PROVIDERS: ATTEND Legal Medicine
DX: I10 Essential (primary) hypertension (principal); I25.10 Atherosclerotic heart disease of native coronary artery without angina pectoris; E78.5 Hyperlipidemia, unspecified; N40.0 Benign prostatic hyperplasia without lower urinary tract symptoms; D64.9 Anemia, unspecified; E55.9 Vitamin D deficiency, unspecified; R53.1 Weakness; Z00.00 Encounter for general adult medical examination without abnormal findings
CPT/HCPCS: 36415; 80053-TC; 80061-TC; 81001; 82306; 82607-TC; 82728-TC; 83540-TC; 84153-TC; 84402; 84403; 84439-TC; 84443-TC; 84550-TC; 85025-TC

== ENCOUNTER 2021-08-15 11:56 | Outpatient (CLI) | payer BC | END 2021-08-15 23:59 | disposition home or self-care (01) | LOC: MRI 11:56 | PROVIDERS: ATTEND Legal Medicine | DX: M19.012 Primary osteoarthritis, left shoulder (principal); M75.112 Incomplete rotator cuff tear or rupture of left shoulder, not specified as traumatic; M75.92 Shoulder lesion, unspecified, left shoulder | CPT/HCPCS: 73221-TC ==

== ENCOUNTER 2022-12-04 07:47 | Outpatient (CLI) | payer BC ==
[2022-12-04 08:51] LABS: BASOPHILS % (AUTO) 0.4 % (0.0-2.0); BILIRUBIN,URINE NEGATIVE (NEGATIVE); COLOR,URINE YELLOW (YELLOW); EOSINOPHILS % (AUTO) 1.3 % (0.0-6.0); HEMATOCRIT 43 % (39-51); HEMOGLOBIN 14.7 g/dL (13.5-17.5); LEUKOCYTE ESTERASE ,URINE NEGATIVE (NEGATIVE); LYMPHOCYTES # (AUTO) 1.7 K/uL (0.8-4.8); LYMPHOCYTES % (AUTO) 33.1 % (20.0-44.0); MEAN CORPUSCULAR HGB CONC 34 g/dl (31.0-36.0); MEAN CORPUSCULAR VOLUME 89 fL (80-96); MONOCYTES # (AUTO) 0.4 K/uL (0.1-1.30); MONOCYTES % (AUTO) 8.4 % (2.0-12.0); NEUTROPHILS % (AUTO) 56.8 % (43.0-81.0); NITRITE, URINE NEGATIVE (NEGATIVE); PLATELET COUNT (AUTO) 198 K/uL (150-450); PROTEIN,URINE NEGATIVE (NEGATIVE); RED BLOOD CELL COUNT(AUTO) 4.85 MIL/uL (4.5-6.0); UGLUCOSE NEGATIVE (NEGATIVE); UROBILINOGEN,URINE 0.2 EU/dL (0.2); WHITE BLOOD COUNT (AUTO) 5.3 K/uL (4.3-11.0)
[2022-12-04 08:54] LABS: BACTERIA,URINE Rare /HPF (None Seen); RBC,URINE 0-2 /HPF (0-2); SQUAMOUS EPITHELIAL CELL,UR Few /HPF (None Seen); WBC,URINE 0-2 /HPF (0-3)
[2022-12-04 09:46] LABS: FREE T4 (FREE THYROXINE) 1.02 ng/dL (0.76-1.46); PROSTATE SPECIFIC ANTIGEN SCR 2.73 ng/mL (0.00-4.00); THYROID STIMULATING HORMONE 1.609 uIU/mL (0.358-3.74); URIC ACID 5.2 mg/dL (2.6-7.2)
[2022-12-04 09:50] LABS: ALBUMIN 4.1 g/dL (3.4-5.0); BILIRUBIN,TOTAL 0.6 mg/dL (0.2-1.0); CALCIUM, SERUM 9.1 mg/dL (8.5-10.1); CREATININE 0.9 mg/dL (0.6-1.3); POTASSIUM 3.6 mmol/L (3.5-5.1); TOTAL PROTEIN, SERUM 7.7 g/dL (6.4-8.2)
== END 2022-12-04 23:59 | disposition home or self-care (01) ==
LOC: LAB 07:47
PROVIDERS: ATTEND Legal Medicine
DX: Z00.00 Encounter for general adult medical examination without abnormal findings (principal); E29.1 Testicular hypofunction; E11.9 Type 2 diabetes mellitus without complications; N40.0 Benign prostatic hyperplasia without lower urinary tract symptoms; E55.9 Vitamin D deficiency, unspecified
CPT/HCPCS: 36415; 80053-TC; 80061-TC; 81001; 82306; 82607-TC; 82728-TC; 83540-TC; 84153-TC; 84402; 84403; 84439-TC; 84443-TC; 84550-TC; 85025-TC; 86592; 86593; 87491; 87591; 87806

== ENCOUNTER 2023-04-01 08:46 | Outpatient (CLI) | payer BC | END 2023-04-01 23:59 | disposition home or self-care (01) | LOC: CT 08:46 | PROVIDERS: ATTEND Legal Medicine | DX: J47.9 Bronchiectasis, uncomplicated (principal); N28.1 Cyst of kidney, acquired; I70.90 Unspecified atherosclerosis; R10.9 Unspecified abdominal pain ==

== ENCOUNTER 2024-04-04 10:08 | Outpatient (CLI) | payer BC | END 2024-04-04 23:59 | disposition home or self-care (01) | LOC: MRI 10:08 | PROVIDERS: ATTEND Legal Medicine | DX: M51.27 Other intervertebral disc displacement, lumbosacral region (principal); M51.24 Other intervertebral disc displacement, thoracic region; M48.03 Spinal stenosis, cervicothoracic region; M48.07 Spinal stenosis, lumbosacral region; M47.817 Spondylosis without myelopathy or radiculopathy, lumbosacral region; M47.813 Spondylosis without myelopathy or radiculopathy, cervicothoracic region; M25.78 Osteophyte, vertebrae | CPT/HCPCS: 72141-TC; 72146-TC; 72148-TC ==

== ENCOUNTER 2025-06-01 10:40 | Outpatient (CLI) | payer BC | END 2025-06-01 23:59 | disposition home or self-care (01) | LOC: MRI 10:40 | PROVIDERS: ATTEND Legal Medicine | DX: S43.431A Superior glenoid labrum lesion of right shoulder, initial encounter (principal); M25.511 Pain in right shoulder; M25.512 Pain in left shoulder; S43.52XA Sprain of left acromioclavicular joint, initial encounter; M19.011 Primary osteoarthritis, right shoulder; M19.012 Primary osteoarthritis, left shoulder; M77.8 Other enthesopathies, not elsewhere classified; X58.XXXA Exposure to other specified factors, initial encounter; Y93.89 Activity, other specified; Y92.89 Other specified places as the place of occurrence of the external cause; Y99.8 Other external cause status; M75.51 Bursitis of right shoulder | CPT/HCPCS: 73221-TC ==